=== PATIENT | female | born 1945 | race Caucasian/White ===

== ENCOUNTER 2021-12-05 21:35 | Inpatient (IN) | payer MEDICARE, OTHER ==
[2021-12-05] MEDS ORDERED: SODIUM CHLORIDE 0.9% 1,000 ML IV STA (22:01)
--- NOTE | 2021-12-05 22:10 | ED ---
Female Urogenital HPI - General Chief complaint: Vaginal Bleeding Stated complaint: Vaginal bleeding Time Seen by Provider: 12/05/21 22:01 Source: patient, EMS, RN notes reviewed, old records reviewed Mode of arrival: EMS Limitations: no limitations - History of Present Illness Initial comments: This is a 68-year-old female to the emergency department for evaluation. Patient is a few complaints today. She notes recent vaginal bleeding she's also had some abdominal pain that's been new concerns she may needed colonoscopy. She thinks Suazo maybe not be functioning perfectly. Patient has otherwise no travel history sick contacts not on blood thinners. No recent fevers. No change in medications. Patient's only medical history is significant for positive colorectal cancer MD Complaint: vaginal bleeding, pelvic pain, other (Abdominal pain) -: hour(s) (Vaginal bleeding) Location: suprapubic Radiation: non-radiating Severity: moderate Severity scale (1-10): 7 Quality: aching Consistency: constant Improves with: none Worsens with: none Patient : No Associated Symptoms: vaginal bleeding - Related Data Home Medications Medication Instructions Recorded Confirmed Famotidine 20 mg PO HS 12/05/21 12/05/21 Ibuprofen [Motrin Ib] 200 mg PO DAILY 12/05/21 12/05/21 Losartan Potassium 50 mg PO DAILY 12/05/21 12/05/21 Metoprolol Succinate (ER) [Toprol 50 mg PO HS 12/05/21 12/05/21 Xl] Naproxen Sodium [Aleve] 220 mg PO BID PRN 12/05/21 12/05/21 Simvastatin [Zocor] 20 mg PO HS 12/05/21 12/05/21 amLODIPine [Norvasc] 5 mg PO DAILY 12/05/21 12/05/21 Allergies Allergy/AdvReac Type Severity Reaction Status Date / Time No Known Allergies Allergy Verified 12/05/21 23:03 Review of Systems ROS Statement: Those systems with pertinent positive or pertinent negative responses have been documented in the HPI. ROS Other: All systems not noted in ROS Statement are negative. Past Medical History Additional Past Medical History / Comment(s): colorectal cancer History of Any Multi-Drug Resistant Organisms: None Reported Additional Past Surgical History / Comment(s): colon resection Smoking Status: Never smoker Past Alcohol Use History: None Reported Past Drug Use History: None Reported General Exam Limitations: no limitations General appearance: alert, in no apparent distress Head exam: Present: atraumatic, normocephalic, normal inspection Eye exam: Present: normal appearance, PERRL, EOMI. Absent: scleral icterus, conjunctival injection, periorbital swelling ENT exam: Present: normal exam, mucous membranes moist Neck exam: Present: normal inspection. Absent: tenderness, meningismus, lymphadenopathy Respiratory exam: Present: normal lung sounds bilaterally. Absent: respiratory distress, wheezes, rales, rhonchi, stridor Cardiovascular Exam: Present: normal rhythm, tachycardia, normal heart sounds. Absent: systolic murmur, diastolic murmur, rubs, gallop, clicks GI/Abdominal exam: Present: soft, normal bowel sounds. Absent: distended, tenderness, guarding, rebound, rigid Extremities exam: Present: normal inspection, full ROM, normal capillary refill. Absent: tenderness, pedal edema, joint swelling, calf tenderness Back exam: Present: normal inspection Neurological exam: Present: alert, oriented X3, CN II-XII intact Psychiatric exam: Present: normal affect, normal mood Skin exam: Present: warm, dry, intact, normal color. Absent: rash Course Vital Signs 12/05/21 12/05/21 21:42 22:21 Temperature 98.9 F Pulse Rate 103 H Respiratory 16 Rate Blood Pressure 194/103 164/94 O2 Sat by Pulse 96 Oximetry - Reevaluation(s) Reevaluation #1: 12/06/21 02:49 Medical record is reviewed Reevaluation #2: 12/06/21 02:49 Patient informed results and questions answered Reevaluation #3: 12/06/21 02:49 Patient does still have persistent vaginal bleeding here in the ER Reevaluation #4: 12/06/21 02:49 Patient has no active vomiting Medical Decision Making - Medical Decision Making 76 male to the ER for evaluation. Patient presents today for evaluation regards to vaginal bleeding but also complains of some abdominal pain. Maybe malfunction of her oxygen with history of colorectal cancer. Patient has no other complaints. Maybe some mild abdominal abdominal cramping as well. Patient will be seen by OB as well as surgery for both vaginal bleeding possible tumor as well as small bowel obstruction - Lab Data Result diagrams: 12/05/21 22:13 12/05/21 22:13 Lab Results 12/05/21 12/05/21 12/05/21 Range/Units 22:13 22:13 22:13 WBC 5.3 (3.8-10.6) k/uL RBC 4.57 (3.80-5.40) m/uL Hgb 14.6 (11.4-16.0) gm/dL Hct 45.2 (34.0-46.0) % MCV 99.0 (80.0-100.0) fL MCH 32.0 (25.0-35.0) pg MCHC 32.3 (31.0-37.0) g/dL RDW 13.5 (11.5-15.5) % Plt Count 374 (150-450) k/uL MPV 8.1 Neutrophils % 60 % Lymphocytes % 27 % Monocytes % 7 % Eosinophils % 2 % Basophils % 1 % Neutrophils # 3.1 (1.3-7.7) k/uL Lymphocytes # 1.4 (1.0-4.8) k/uL Monocytes # 0.4 (0-1.0) k/uL Eosinophils # 0.1 (0-0.7) k/uL Basophils # 0.0 (0-0.2) k/uL PT 10.3 (9.0-12.0) sec INR 0.9 (<1.2) APTT 21.1 L (22.0-30.0) sec Sodium 139 (137-145) mmol/L Potassium 4.2 (3.5-5.1) mmol/L Chloride 106 (98-107) mmol/L Carbon Dioxide 20 L (22-30) mmol/L Anion Gap 13 mmol/L BUN 16 (7-17) mg/dL Creatinine 0.78 (0.52-1.04) mg/dL Est GFR (CKD-EPI)AfAm 85 (>60 ml/min/1.73 sqM) Est GFR (CKD-EPI)NonAf 73 (>60 ml/min/1.73 sqM) Glucose 178 H (74-99) mg/dL Calcium 9.1 (8.4-10.2) mg/dL Total Bilirubin 0.6 (0.2-1.3) mg/dL AST 51 H (14-36) U/L ALT 23 (4-34) U/L Alkaline Phosphatase 97 (38-126) U/L Total Protein 7.4 (6.3-8.2) g/dL Albumin 4.3 (3.5-5.0) g/dL Amylase 69 (30-110) U/L Lipase 70 (23-300) U/L Urine Color Urine Appearance (Clear) Urine pH (5.0-8.0) Ur Specific [place] (1.001-1.035) Urine Protein (Negative) Urine Glucose (UA) (Negative) Urine Ketones (Negative) Urine Blood (Negative) Urine Nitrite (Negative) Urine Bilirubin (Negative) Urine Urobilinogen (<2.0) mg/dL Ur Leukocyte Esterase (Negative) Urine RBC (0-5) /hpf Urine WBC (0-5) /hpf Ur Squamous Epith Cells (0-4) /hpf Blood Type Blood Type Recheck Bld Type Recheck Status Antibody Screen Spec Expiration Date 12/05/21 12/06/21 Range/Units 22:13 00:31 WBC (3.8-10.6) k/uL RBC (3.80-5.40) m/uL Hgb (11.4-16.0) gm/dL Hct (34.0-46.0) % MCV (80.0-100.0) fL MCH (25.0-35.0) pg MCHC (31.0-37.0) g/dL RDW (11.5-15.5) % Plt Count (150-450) k/uL MPV Neutrophils % % Lymphocytes % % Monocytes % % Eosinophils % % Basophils % % Neutrophils # (1.3-7.7) k/uL Lymphocytes # (1.0-4.8) k/uL Monocytes # (0-1.0) k/uL Eosinophils # (0-0.7) k/uL Basophils # (0-0.2) k/uL PT (9.0-12.0) sec INR (<1.2) APTT (22.0-30.0) sec Sodium (137-145) mmol/L Potassium (3.5-5.1) mmol/L Chloride (98-107) mmol/L Carbon Dioxide (22-30) mmol/L Anion Gap mmol/L BUN (7-17) mg/dL Creatinine (0.52-1.04) mg/dL Est GFR (CKD-EPI)AfAm (>60 ml/min/1.73 sqM) Est GFR (CKD-EPI)NonAf (>60 ml/min/1.73 sqM) Glucose (74-99) mg/dL Calcium (8.4-10.2) mg/dL Total Bilirubin (0.2-1.3) mg/dL AST (14-36) U/L ALT (4-34) U/L Alkaline Phosphatase (38-126) U/L Total Protein (6.3-8.2) g/dL Albumin (3.5-5.0) g/dL Amylase (30-110) U/L Lipase (23-300) U/L Urine Color Light Yellow Urine Appearance Clear (Clear) Urine pH 7.0 (5.0-8.0) Ur Specific [place] 1.025 (1.001-1.035) Urine Protein Negative (Negative) Urine Glucose (UA) Negative (Negative) Urine Ketones Negative (Negative) Urine Blood Moderate H (Negative) Urine Nitrite Negative (Negative) Urine Bilirubin Negative (Negative) Urine Urobilinogen <2.0 (<2.0) mg/dL Ur Leukocyte Esterase Negative (Negative) Urine RBC 109 H (0-5) /hpf Urine WBC 3 (0-5) /hpf Ur Squamous Epith Cells <1 (0-4) /hpf Blood Type A Negative Blood Type Recheck A Neg Bld Type Recheck Status No Antibody Screen NEGATIVE Spec Expiration Date 12/08/20212312 - Radiology Data Radiology results: report reviewed (Ultrasound pelvis negative CT head and pelvis shows small bowel obstruction as well as likely uterus tumor), image reviewed Disposition Clinical Impression: Vaginal bleeding, SBO (small bowel obstruction), Ileus Disposition: ADMITTED IP TO THIS [facility] Condition: Fair Is patient prescribed a controlled substance at d/c from ED?: No
--- NOTE | 2021-12-05 22:54 | US ---
EXAMINATION TYPE: US pelvic complete DATE OF EXAM: 12/05/2021 COMPARISON: NONE CLINICAL HISTORY: bleeding. Patient presents with post menopausal vaginal bleeding. TECHNIQUE: Transabdominal (TA). Patient REFUSED TV exam Very limited exam due to overlying bowel gas and empty bladder. 1. Uterus: Obscured by overlying bowel gas 2. Endometrium: Obscured by overlying bowel gas 3. Right Ovary: Obscured by overlying bowel gas 4. Left Ovary: Obscured by overlying bowel gas 5. Bilateral Adnexa: wnl 6. Posterior cul-de-sac: wnl IMPRESSION: Exam is significantly limited by lack of bladder filling. Uterus and ovaries not identified. No evide nce of free fluid in the pelvis.
[2021-12-05 22:59] LABS: Basophils % (A) 1 %; Eosinophils # (A) 0.1 k/uL (0-0.7); Eosinophils % (A) 2 %; HCT 45.2 % (34.0-46.0); HGB 14.6 gm/dL (11.4-16.0); INR 0.9 (<1.2); Lymphocytes # (A) 1.4 k/uL (1.0-4.8); Lymphocytes % (A) 27 %; MCHC 32.3 g/dL (31.0-37.0); Mean Platelet Volume 8.1; Monocytes # (A) 0.4 k/uL (0-1.0); Monocytes % (A) 7 %; Neutrophils # (A) 3.1 k/uL (1.3-7.7); Neutrophils % (A) 60 %; Partial Thromboplastin Time 21.1 sec (22.0-30.0); Platelet Count 374 k/uL (150-450); Prothrombin Time 10.3 sec (9.0-12.0); RBC 4.57 m/uL (3.80-5.40); RDW 13.5 % (11.5-15.5); WBC 5.3 k/uL (3.8-10.6)
[2021-12-05 23:01] LABS: Albumin 4.3 g/dL (3.5-5.0); Calcium 9.1 mg/dL (8.4-10.2); Potassium 4.2 mmol/L (3.5-5.1); Total Bilirubin 0.6 mg/dL (0.2-1.3); Total Protein 7.4 g/dL (6.3-8.2)
--- NOTE | 2021-12-06 00:14 | CT ---
EXAMINATION TYPE: CT abdomen pelvis w con DATE OF EXAM: 12/05/2021 COMPARISON: None HISTORY: pain,vag bleeding CT DLP: 1288.8 mGycm Automated exposure control for dose reduction was used. CONTRAST: Performed with IV Contrast, patient injected with 100ml mL of Isovue 300. Images obtained from the diaphragm to the floor of the pelvis with IV contrast. Lung bases are clear. There is no pleural effusion. Heart size is normal. There is no pericardial eff usion. Liver spleen and stomach pancreas appear intact. The bile ducts are not dilated. Gallbladder appears normal. There is no adrenal mass. There is satisfactory contrast opacification of the kidneys. There is no hy dronephrosis. Delayed images show normal renal excretion. There is no retroperitoneal adenopathy. Jerry dder distends smoothly. There is no inguinal hernia. There is small amount of low-density free fluid in the pelvis. There is left-sided colostomy with large parastomal hernia containing multiple loops o f bowel. No bowel obstruction seen. Hernia measures 13 x 7 cm. There are some mildly dilated fluid-fi lled small bowel loops in the right lower quadrant. The terminal ileum is not dilated. Small bowel di lated up to 3.7 cm. Uterus is posterior in the pelvis and heterogeneous. The rectum is absent. There is a first-degree L4 -5 spondylolisthesis. There is no lumbar compression fracture. I see no focal bone destruction. The b luisana pelvis is intact. The hip joints are intact. IMPRESSION: Enlarged heterogeneous uterus with thickened endometrium. Tumor is possible. Abdominal surgery with resection of the rectosigmoid colon and colostomy with large parastomal hernia . There is evidence for partial mechanical small bowel obstruction likely related to incarcerated sma ll bowel loops.
[2021-12-06 01:06] LABS: Appearance,Urine Clear (Clear); Bilirubin,Urine Negative (Negative); Blood,Urine Moderate (Negative); Color,Urine Light Yellow; Glucose,Urine (UA) Negative (Negative); Ketones,Urine Negative (Negative); Leukocyte Esterase,Urine Negative (Negative); Nitrite,Urine Negative (Negative); Protein,Urine Negative (Negative); RBC,Urine 109 /hpf (0-5); Specific Gravity,Urine 1.025 (1.001-1.035); Squamous Epithelial Cell,Urine <1 /hpf (0-4); Urobilinogen,Urine <2.0 mg/dL (<2.0); WBC,Urine 3 /hpf (0-5)
[2021-12-06] MEDS ORDERED: NALOXONE 0.4 MG/ML 1 ML VIAL IV PRN (01:16)
[2021-12-06] MEDS ORDERED: ONDANSETRON 4 MG/2 ML VIAL IVP PRN (01:21)
[2021-12-06] MEDS ORDERED: MORPHINE SULFATE 4 MG/ML SYRINGE IV PRN (01:21)
[2021-12-06] MEDS ORDERED: LORazepam 2 MG/ML INJ IV PRN (01:21)
[2021-12-06] MEDS: SODIUM CHLORIDE 0.9% 1,000 ML IV SCH ×2 (02:06→20:45)
[2021-12-06] MEDS ORDERED: cloNIDine 0.2 MG/24HR PATCH TRANSDERM SCH (10:00)
--- NOTE | 2021-12-06 16:19 | P.GSCN ---
History of Present Illness Consult date: 12/06/21 History of present illness: CHIEF COMPLAINT: Vaginal bleeding HISTORY OF PRESENT ILLNESS: This is a 76-year-old female presented to the emergency room for evaluation of vaginal bleeding. Patient reports that she was sitting at her computer yesterday afternoon and felt a wet sensation. And noted to have blood that was coming from the vaginal area. She reports that her underwear was saturated and it pulled down her legs. Patient did report some left lower quadrant discomfort. Her ostomy has been functioning. She denies any nausea or vomiting. Patient reports having history of colorectal cancer with resection of the rectosigmoid colon with colostomy placement by Dr. Osuna. And then 2 months later she required repair of a parastomal hernia. She also underwent chemo and radiation treatment. Patient has never had previous history of vaginal bleeding. Surgical service was consulted for questionable mechanical small bowel traction noted on CAT scan. However patient is not presenting with a bowel obstruction symptoms. Ostomy is functioning. No nausea or vomiting. Patient seen and examined with Dr. Roberson in ER. And she's been started on a clear liquid diet. PAST MEDICAL HISTORY: Colorectal cancer PAST SURGICAL HISTORY: Estimated above MEDICATIONS: See list. ALLERGIES: See list. SOCIAL HISTORY: No illicit drug use. REVIEW OF SYSTEMS: CONSTITUTIONAL: Denies fever or chills. HEENT: Denies blurred vision, vision changes, or eye pain. Denies hemoptysis CARDIOVASCULAR: Denies chest pain or pressure. RESPIRATORY: No shortness of breath. GASTROINTESTINAL: See HPI for pertinent findings HEMATOLOGIC: Denies bleeding disorders. GENITOURINARY: Denies any blood in urine or increased urinary frequency. SKIN: Denies pruitis. Denies rash. PHYSICAL EXAM: VITAL SIGNS: Reviewed GENERAL: Well-developed in no acute distress. HEENT: No sclera icterus. Extraocular movements grossly intact. Moist buccal mucosa. Head is atraumatic, normocephalic. No nasal drainage. ABDOMEN: Soft. Nontender. Patient's ostomy is functioning small amount of stool noted. Patient does have some bulging above the stoma. NEUROLOGIC: Alert and oriented. Cranial nerves II through XII grossly intact. LABORATORY DATA: WBC 5.3 hemoglobin 14.6 platelets 374 INR 0.9 Sodium 139 potassium 4.2 creatinine 0.78 IMAGING: Computed tomography scan abdomen and pelvis and large heterogenous uterus with thickened endometrium. Tumor as possible. Abdominal surgery with resection of the rectosigmoid sigmoid colon and colostomy with large parastomal hernia. There is evidence of for partial mechanical small bowel obstruction likely related to incarcerated small bowel loops. ASSESSMENT: 1. Vaginal bleeding with heterogenous uterus with thickened endometrium and possible tumor 2. Large parastomal hernia with no clinical evidence of bowel obstruction PLAN: -Agree with [facility] consult -Start patient on clear liquid diet and monitor -Continue supportive care -No surgical intervention Thank you for this consult Physician Sales Representative Cash Registers note has been reviewed by physician. Signing provider agrees with the documented findings, assessment, and plan of care. Past Medical History Past Medical History: Cancer, GERD/Reflux, Hyperlipidemia, Hypertension, Osteoarthritis (OA), Pneumonia Additional Past Medical History / Comment(s): 2006 colorectal cancer with surgery/colostomy/chemo and radiation, diverticular disease, benign colon polyps, murmur, bronchitis History of Any Multi-Drug Resistant Organisms: None Reported Past Surgical History: Bowel Resection Additional Past Surgical History / Comment(s): AP resection/colostomy, paracolostomy hernia repair, colonoscopies, bilateral cataract removals/lens i mplants. Additional Past Anesthesia/Blood Transfusion Reaction / Comm: Slow to wake Smoking Status: Never smoker - Past Family History Father Family Medical History: Vascular Disorder Additional Family Medical History / Comment(s): Abdominal aneurysm, PVD/leg amputation. Mother Family Medical History: Diabetes Mellitus, Vascular Disorder Additional Family Medical History / Comment(s): PVD/leg amputation. Medications and Allergies Home Medications Medication Instructions Recorded Confirmed Type Famotidine 20 mg PO HS 12/05/21 12/05/21 History Ibuprofen [Motrin Ib] 200 mg PO DAILY 12/05/21 12/05/21 History Losartan Potassium 50 mg PO DAILY 12/05/21 12/05/21 History Metoprolol Succinate (ER) [Toprol 50 mg PO HS 12/05/21 12/05/21 History Xl] Naproxen Sodium [Aleve] 220 mg PO BID PRN 12/05/21 12/05/21 History Simvastatin [Zocor] 20 mg PO HS 12/05/21 12/05/21 History amLODIPine [Norvasc] 5 mg PO DAILY 12/05/21 12/05/21 History Allergies Allergy/AdvReac Type Severity Reaction Status Date / Time No Known Allergies Allergy Verified 12/05/21 23:03 Surgical - Exam Vital Signs Temp Pulse Resp BP Pulse Ox 98.9 F 103 H 16 194/103 96 12/05/21 21:42 12/05/21 21:42 12/05/21 21:42 12/05/21 21:42 12/05/21 21:42 Results - Labs 12/05/21 22:13 12/05/21 22:13 Abnormal Lab Results - Last 24 Hours (Table) 12/05/21 12/05/21 12/06/21 Range/Units 22:13 22:13 00:31 APTT 21.1 L (22.0-30.0) sec Carbon Dioxide 20 L (22-30) mmol/L Glucose 178 H (74-99) mg/dL AST 51 H (14-36) U/L Urine Blood Moderate H (Negative) Urine RBC 109 H (0-5) /hpf Diabetes panel 12/05/21 Range/Units 22:13 Sodium 139 (137-145) mmol/L Potassium 4.2 (3.5-5.1) mmol/L Chloride 106 (98-107) mmol/L Carbon Dioxide 20 L (22-30) mmol/L BUN 16 (7-17) mg/dL Creatinine 0.78 (0.52-1.04) mg/dL Glucose 178 H (74-99) mg/dL Calcium 9.1 (8.4-10.2) mg/dL AST 51 H (14-36) U/L ALT 23 (4-34) U/L Alkaline Phosphatase 97 (38-126) U/L Total Protein 7.4 (6.3-8.2) g/dL Albumin 4.3 (3.5-5.0) g/dL Calcium panel 12/05/21 Range/Units 22:13 Calcium 9.1 (8.4-10.2) mg/dL Albumin 4.3 (3.5-5.0) g/dL Pituitary panel 12/05/21 Range/Units 22:13 Sodium 139 (137-145) mmol/L Potassium 4.2 (3.5-5.1) mmol/L Chloride 106 (98-107) mmol/L Carbon Dioxide 20 L (22-30) mmol/L BUN 16 (7-17) mg/dL Creatinine 0.78 (0.52-1.04) mg/dL Glucose 178 H (74-99) mg/dL Calcium 9.1 (8.4-10.2) mg/dL Adrenal panel 12/05/21 Range/Units 22:13 Sodium 139 (137-145) mmol/L Potassium 4.2 (3.5-5.1) mmol/L Chloride 106 (98-107) mmol/L Carbon Dioxide 20 L (22-30) mmol/L BUN 16 (7-17) mg/dL Creatinine 0.78 (0.52-1.04) mg/dL Glucose 178 H (74-99) mg/dL Calcium 9.1 (8.4-10.2) mg/dL Total Bilirubin 0.6 (0.2-1.3) mg/dL AST 51 H (14-36) U/L ALT 23 (4-34) U/L Alkaline Phosphatase 97 (38-126) U/L Total Protein 7.4 (6.3-8.2) g/dL Albumin 4.3 (3.5-5.0) g/dL
--- NOTE | 2021-12-06 17:35 | P.OBCN ---
History of Present Illness Consult date: 12/06/21 Requesting physician: Osman Goodman Reason for consult: other (Postmenopausal bleeding) Chief complaint: Vaginal bleeding History of present illness: This is a 76-year-old postmenopausal woman who reports sudden onset of vaginal bleeding yesterday evening. She reports she is feeling well and dissected up from a seated position. She then felt a gush of fluid and noted dark red and brown vaginal bleeding that saturated through her clothes. She continued to have bleeding for the next 1 hour therefore called EMS and was transported to the hospital. Currently she states her bleeding has decreased significantly however she does have a small amount on her pad every time she is up to the ba throom. Admission hemoglobin was 14.6 and white blood cells 5.3. Past medical history is significant for rectal cancer 14 years ago and she is status post rectal resection, chemotherapy and pelvic radiation. She currently has a stoma. Currently She denies abdominal or pelvic pain. She has had normal output without blood from her stoma. She denies chest pain, shortness of breath, fever, chills, lightheadedness or syncopal episodes. Her appetite is normal and she is otherwise ambulating and voiding without any difficulty. Computed tomography scan of abdomen and pelvis significant for left sided colostomy with a large parastomal hernia containing multiple loops of bowel. Hernia is 13 x 7 cm. possible small mechanical bowel obstruction. The uterus is reported as posterior and heterogeneous. There are no measurements recorded however review of the images shows uterus to be within the posterior pelvis below the level of the sacral promontory. There are no adnexal masses or pelvic lymphadenopathy noted. Transabdominal pelvic ultrasound was performed however severely limited the uterus is not visualized. The patient at that time declined a transvaginal ultrasound. Review of Systems Constitutional: Denies chills, Denies fatigue, Denies fever Breasts: absent: masses Cardiovascular: Denies chest pain, Denies irregular heart beat, Denies lightheadedness, Denies palpitations, Denies rapid heart beat, Denies shortness of breath, Denies syncope Respiratory: Denies congestion, Denies cough Gastrointestinal: Denies abdominal pain, Denies BRBPR, Denies heartburn, Denies nausea, Denies vomiting Genitourinary: Reports abnormal vaginal bleeding, Denies dysuria, Denies hematuria, Denies pelvic pain Menstruation: Reports postmenopausal Integumentary: Denies rash Neurological: Denies headaches, Denies syncope Psychiatric: Denies depression Hematologic/Lymphatic: Denies easy bleeding, Denies easy bruising Past Medical History Past Medical History: Cancer, GERD/Reflux, Hyperlipidemia, Hypertension, Osteoarthritis (OA), Pneumonia Additional Past Medical History / Comment(s): 2006 colorectal cancer with surgery/colostomy/chemo and radiation, diverticular disease, benign colon polyps, murmur, bronchitis History of Any Multi-Drug Resistant Organisms: None Reported Past Surgical History: Bowel Resection Additional Past Surgical History / Comment(s): AP resection/colostomy, paracolostomy hernia repair, colonoscopies, bilateral cataract removals/lens implants. Additional Past Anesthesia/Blood Transfusion Reaction / Comm: Slow to wake Smoking Status: Never smoker - Past Family History Father Family Medical History: Vascular Disorder Additional Family Medical History / Comment(s): Abdominal aneurysm, PVD/leg am putation. Mother Family Medical History: Diabetes Mellitus, Vascular Disorder Additional Family Medical History / Comment(s): PVD/leg amputation. Medications and Allergies Home Medications Medication Instructions Recorded Confirmed Type Famotidine 20 mg PO HS 12/05/21 12/05/21 History Ibuprofen [Motrin Ib] 200 mg PO DAILY 12/05/21 12/05/21 History Losartan Potassium 50 mg PO DAILY 12/05/21 12/05/21 History Metoprolol Succinate (ER) [Toprol 50 mg PO HS 12/05/21 12/05/21 History Xl] Naproxen Sodium [Aleve] 220 mg PO BID PRN 12/05/21 12/05/21 History Simvastatin [Zocor] 20 mg PO HS 12/05/21 12/05/21 History amLODIPine [Norvasc] 5 mg PO DAILY 12/05/21 12/05/21 History Allergies Allergy/AdvReac Type Severity Reaction Status Date / Time No Known Allergies Allergy Verified 12/05/21 23:03 Exam Vital Signs Temp Pulse Pulse Resp BP BP Pulse Ox 12/06/21 16:22 98.3 F 61 18 145/73 95 12/06/21 14:00 159/66 96 12/06/21 08:00 98.5 F 84 18 154/71 96 12/06/21 04:23 98.2 F 66 16 128/57 96 12/05/21 22:21 164/94 12/05/21 21:42 98.9 F 103 H 16 194/103 96 Intake and Output 12/06/21 12/06/21 12/06/21 06:59 14:59 22:59 Intake Total 1040 Balance 1040 Intake: Intake, IV Titration 1040 Amount Sodium Chloride 0.9% 1, 1040 000 ml @ 130 mls/hr IV . Q7H42M [facility] Rx#:[id number] Other: Weight 68.039 kg This is a pleasant, comfortable and well-appearing female, appears younger than stated age. HEENT exam is unremarkable for any palpable lymphadenopathy or thyromegaly. Her breathing is on labored and her heart is a regular rate and rhythm. The breasts are symmetric bilaterally and free of any skin changes or nipple discharge. There are no palpable breast masses noted. The abdomen is obese with a large overhanging pannus and stoma in the midline. There is brown stool noted in the stoma bag. There is no rebound, no guarding and no flank pain noted. No suprapubic pain or palpable masses noted. The extremities are free of any swelling, edema or redness. On bedside pelvic examination the external genitalia appears atrophic and otherwise normal. She has some thickening of the skin and scarring consistent with history of rectal resection however no ulcerations or abnormal tissue was appreciated. Exam is limited at the bedside however bimanual examination is performed with the patient's consent. There is a small amount of dark blood in the vaginal vault. The vagina tracts posteriorly and is constricted at the apex consistent with history of pelvic radiation. I do not palpate a cervix. The uterus and adnexa are not palpable secondary to the patient's body habitus however no large mass is palpable. The patient has no pain on examination. I do not believe that there is a fistula. Results Result Diagrams: 12/05/21 22:13 12/05/21 22:13 Abnormal Lab Results - Last 24 Hours (Table) 12/05/21 12/05/21 12/06/21 Range/Units 22:13 22:13 00:31 APTT 21.1 L (22.0-30.0) sec Carbon Dioxide 20 L (22-30) mmol/L Glucose 178 H (74-99) mg/dL AST 51 H (14-36) U/L Urine Blood Moderate H (Negative) Urine RBC 109 H (0-5) /hpf CT scan - abdomen: report reviewed, image reviewed CT scan - pelvis: report reviewed, image reviewed US - abdomen: report reviewed Assessment and Plan (1) History of rectal cancer Current Visit: Yes Status: Acute Code(s): Z85.048 - PRSNL HX OF MALIG NEOPLM OF RECTUM, RECTOSIG JUNCT, AND ANUS SNOMED Code(s): 278229212 (2) Colostomy hernia Current Visit: Yes Status: Acute Code(s): K94.09 - OTHER COMPLICATIONS OF COLOSTOMY SNOMED Code(s): 793864941 (3) Vaginal bleeding Current Visit: Yes Status: Acute Code(s): N93.9 - ABNORMAL UTERINE AND VAGINAL BLEEDING, UNSPECIFIED SNOMED Code(s): 919431264 Plan: This is a 76-year-old woman with a 1 day history of vaginal bleeding. Remote hi story of rectal cancer status post rectal resection, chemotherapy and pelvic radiation. The patient agrees to have a transvaginal ultrasound to better determine pelvic anatomy. Her pelvic exam is limited and she will require formal gynecologic examination with tissue sampling. I will review her imaging tomorrow and discuss with her the best route for doing this, depending on her anatomy she may be amenable to simple endometrial biopsy in the office versus examination under anesthetic with D&C. At this point the patient is asymptomatic and is hemodynamically stable.
--- NOTE | 2021-12-06 20:37 | US ---
EXAMINATION TYPE: US transvaginal DATE OF EXAM: 12/06/2021 COMPARISON: US Pelvis, CT 12/05/21 CLINICAL HISTORY: PMB bleeding, hx rectal cancer. Post menopausal bleeding; hx rectal cancer 14 years ago. TECHNIQUE: Transvaginal (TV). Patient had transabdominal pelvic ultrasound yesterday in ER but refused TV exam. Today, patient co nsented to TV exam EXAM MEASUREMENTS: Uterus: 8.3 x 5.5 x 6.2 cm Endometrial Stripe: 2.1 cm 1. Uterus: Anteverted Heterogenous appearance 2. Endometrium: Thickened endometrium that appears heterogenous 3. Right Ovary: Obscured by overlying bowel gas 4. Left Ovary: Obscured by overlying bowel gas 5. Bilateral Adnexa: Appears wnl 6. Posterior cul-de-sac: wnl IMPRESSION: Endometrium measures 2 cm. Tumor should be considered in this postmenopausal patient. No free fluid. Ovaries not seen.
[2021-12-06] MEDS: FAMOTIDINE 20 MG TAB PO SCH (20:43)
--- NOTE | 2021-12-06 21:21 | P.HPIM ---
History of Present Illness H&P Date: 12/06/21 Chief Complaint: Vaginal brown discharge This is a very pleasant 76-year-old patient of Dr. Lori Krueger, was chronic stable medical conditions include GERD, hyperlipidemia, hypertension, osteoarthritis, in 2006 had colorectal cancer with surgery colostomy chemoradiation, diverticulosis. Patient yesterday had an episode where she suddenly felt the something gushing out from the vagina admitted to the bathroom found a large amount of brown liquid then gushed out. She did put a pad that also got some. Denied any dizziness lightheadedness no fever no chills. No lower abdominal pain. No local symptoms. Patient ostomy normally she empties it about 2-4 times a day. Review of systems: GEN.: Tired EYES: None HEENT: None NECK: None RESPIRATORY: None CARDIOVASCULAR: None GASTROINTESTINAL: None GENITOURINARY: As above MUSCULOSKELETAL: Pain many joints LYMPHATICS: None HEMATOLOGICAL: None PSYCHIATRY: None NEUROLOGICAL: None Past medical history to include: GERD, hyperlipidemia, hypertension, osteoarthritis, colorectal cancer 2006 with surgery chemo radiation and colostomy. Diverticular disease. Benign colon polyps Social history: Lives with her . Nonsmoker. Alcohol rarely Family history: Vascular disorder, abdominal aneurysm Physical examination: VITAL SIGNS: 98.2, 66, 16, 128/57, 96% room air GENERAL: BMI 30.3, But awake, slightly tired. EYES: Pupils equal. Conjunctiva normal. HEENT: External appearance of nose and ears normal, oral cavity grossly normal. NECK: JVD not raised; masses not palpable. HEART: First and second heart sounds are normal; no edema. LUNGS: Respiratory rate normal; clear to auscultation. ABDOMEN: Soft, nontender, liver spleen not palpable, no masses palpable, colostomy bag. PSYCH: Alert and oriented x3; mood and affect normal. MUSCULOSKELETAL:No Clubbing/cyanosis;muscles-grossly intact. Evidence of OA NEUROLOGICAL: Cranial nerves grossly intact; no facial asymmetry, power and sensation grossly intact. LYMPHATICS: No lymph nodes palpable in the axilla and neck INVESTIGATIONS, reviewed in the clinical context: White count 5.3 hemoglobin 14.6 platelets 374 sodium 139 potassium 4.2 creati nine 0.78 UA positive for blood, RBC 109 Pelvic ultrasound: Limited exam due to lack of bladder filling CT abdomen and pelvis with contrast: The second colostomy with large parastomal hernia containing multiple loops of bowel obstruction. L4-L5 spondylolisthesis. Large heterogenesis uterus with thickened endometrium Assessment and plan: -Patient presents with large amount of brownish discolored fluid from the vagina. 70 pain fever no chills. CT did show enlarged uterus with thickened endometrium. Localized malignancy to be considered. MECHANICAL OPERATOR consulted. Patient will need a transvaginal ultrasound. Possibly a malignancy was discussed with the patient. -Large parastomal hernia with bowel loops and there. Nonobstructive. Patient has no symptoms. Surgery was consulted -Colostomy, from prior history of colorectal cancer. Has been functioning normally -Hyperlipidemia Zocor 4020 mg daily at bedtime -Essential hypertension Toprol-XL 50 mg daily at bedtime, Norvasc 5 mg a day, losartan 50 mg a day -Primary osteoarthritis multiple joints Aleve 220 mg by mouth twice a day when necessary -Obesity BMI 30.3 Weight loss measures Care was discussed with the patient. Consultation to surgery MECHANICAL OPERATOR was done. Home medications resumed. Patient will need a transvaginal ultrasound. Past Medical History Additional Past Medical History / Comment(s): colorectal cancer History of Any Multi-Drug Resistant Organisms: None Reported Additional Past Surgical History / Comment(s): colon resection Smoking Status: Never smoker Past Alcohol Use History: None Reported Past Drug Use History: None Reported - Past Family History Father Family Medical History: Vascular Disorder Additional Family Medical History / Comment(s): Abdominal aneurysm, PVD/leg amputation. Mother Family Medical History: Diabetes Mellitus, Vascular Disorder Additional Family Medical History / Comment(s): PVD/leg amputation. Medications and Allergies Home Medications Medication Instructions Recorded Confirmed Type Famotidine 20 mg PO HS 12/05/21 12/05/21 History Ibuprofen [Motrin Ib] 200 mg PO DAILY 12/05/21 12/05/21 History Losartan Potassium 50 mg PO DAILY 12/05/21 12/05/21 History Metoprolol Succinate (ER) [Toprol 50 mg PO HS 12/05/21 12/05/21 History Xl] Naproxen Sodium [Aleve] 220 mg PO BID PRN 12/05/21 12/05/21 History Simvastatin [Zocor] 20 mg PO HS 12/05/21 12/05/21 History amLODIPine [Norvasc] 5 mg PO DAILY 12/05/21 12/05/21 History Allergies Allergy/AdvReac Type Severity Reaction Status Date / Time No Known Allergies Allergy Verified 12/05/21 23:03 Physical Exam Vitals: Vital Signs Temp Pulse Pulse Resp BP BP Pulse Ox 12/06/21 08:00 98.5 F 84 18 154/71 96 12/06/21 04:23 98.2 F 66 16 128/57 96 12/05/21 22:21 164/94 12/05/21 21:42 98.9 F 103 H 16 194/103 96 Intake and Output 12/05/21 12/06/21 12/06/21 22:59 06:59 14:59 Intake Total 1040 Balance 1040 Intake: Intake, IV Titration 1040 Amount Sodium Chloride 0.9% 1, 1040 000 ml @ 130 mls/hr IV . Q7H42M [facility] Rx#:[id number] Other: Weight 68.039 kg Results CBC & Chem 7: 12/05/21 22:13 12/05/21 22:13 Labs: Abnormal Lab Results - Last 24 Hours (Table) 12/05/21 12/05/21 12/06/21 Range/Units 22:13 22:13 00:31 APTT 21.1 L (22.0-30.0) sec Carbon Dioxide 20 L (22-30) mmol/L Glucose 178 H (74-99) mg/dL AST 51 H (14-36) U/L Urine Blood Moderate H (Negative) Urine RBC 109 H (0-5) /hpf
[2021-12-06] MEDS: LACTATED RINGERS 1,000 ML IV SCH (22:43)
[2021-12-06] MEDS: ENOXAPARIN 40 MG/0.4 ML SYRINGE SQ SCH (22:43)
--- NOTE | 2021-12-07 08:39 | P.PN ---
Subjective Progress Note Date: 12/07/21 Principal diagnosis: Vaginal bleeding, possible small bowel obstruction Small amounts of vaginal bleeding throughout the night. Otherwise she feels well. Review of transvaginal ultrasound shows uterus measuring 8.3 x 5.5 x 6.2 cm. Thickened endometrial stripe at 2.1 cm. Findings reviewed with the patient and her daughter in detail. Findings on the concerning for possible endometrial cancer. I have recommended on D&C during her admission for the pathology specimen. The procedure was reviewed in detail including anticipated recovery. Risks include increased bleeding, transfusion, infection, uterine perforation with damage to internal structures. I will discuss case with the surgical team and if she is requiring any intervention for her stoma or bowel obstruction requiring operative intervention we can coordinate care. All questions from the patient and family were answered. Objective - Vital Signs Vital signs: Vital Signs Temp 97.7 F 12/07/21 05:00 Pulse 68 12/07/21 05:00 Resp 18 12/07/21 05:00 BP 133/70 12/07/21 05:00 Pulse Ox 96 12/07/21 05:00 Intake & Output 12/06/21 12/07/21 12/07/21 18:59 06:59 18:59 Intake Total 260 400 Balance 260 400 Weight 68.039 kg Intake: Intake, IV Titration 260 400 Amount Lactated Ringers 1,000 ml 400 @ 50 mls/hr IV .Q20H [facility] Rx#:[id number] Sodium Chloride 0.9% 1, 260 000 ml @ 130 mls/hr IV . Q7H42M [facility] Rx#:[id number] Other: # Voids 3 - Constitutional General appearance: Present: average body habitus - Gastrointestinal Gastrointestinal Comment(s): Abdomen obese, soft and nontender. Minimal brown output from stoma bag, no bleeding. - Genitourinary Genitourinary Comment(s): Deferred - Labs CBC & Chem 7: 12/05/21 22:13 12/05/21 22:13 Assessment and Plan (1) History of rectal cancer Current Visit: Yes Status: Acute Code(s): Z85.048 - PRSNL HX OF MALIG NEOPLM OF RECTUM, RECTOSIG JUNCT, AND ANUS SNOMED Code(s): 290434869 (2) Colostomy hernia Current Visit: Yes Status: Acute Code(s): K94.09 - OTHER COMPLICATIONS OF COLOSTOMY SNOMED Code(s): 863594573 (3) Vaginal bleeding Current Visit: Yes Status: Acute Code(s): N93.9 - ABNORMAL UTERINE AND VAGINAL BLEEDING, UNSPECIFIED SNOMED Code(s): 764149950 Plan: Plan for exam under anesthetic with dilation and curettage. Patient is nothing by mouth.
[2021-12-07] MEDS: amLODIPine 5 MG TAB PO SCH (09:16)
[2021-12-07] MEDS: LOSARTAN 50 MG TAB PO SCH (09:16)
[2021-12-07 09:44] LABS: Basophils # (A) 0.02 X 10*3/uL (0.00-0.10); Basophils % (A) 0.4 %; Eosinophils % (A) 3.7 %; HCT 38.3 % (37.2-46.3); HGB 12.2 g/dL (12.0-15.0); Immature Grans, Automated 0.2 %; Lymphocytes # (A) 1.42 X 10*3/uL (0.90-5.00); Lymphocytes % (A) 26.1 %; MCH 30.5 pg (27.0-32.0); MCHC 31.9 g/dL (32.0-37.0); MCV 95.8 fL (80.0-97.0); Monocytes # (A) 0.53 X 10*3/uL (0.20-1.00); Monocytes % (A) 9.7 %; NRBC Per 100 WBC 0 /100 WBCS (0.0-0.0); Neutrophils # (A) 3.26 X 10*3/uL (1.80-7.70); Neutrophils % (A) 59.9 %; Platelet Count 309 X 10*3/uL (140-440); WBC 5.44 X 10*3/uL (4.50-10.00)
[2021-12-07] MEDS: ENOXAPARIN 40 MG/0.4 ML SYRINGE SQ SCH (10:15)
--- NOTE | 2021-12-07 14:15 | P.PN ---
Subjective Progress Note Date: 12/07/21 CHIEF COMPLAINT: Vaginal bleeding HISTORY OF PRESENT ILLNESS: Patient is still reporting vaginal bleeding. She is scheduled for D&C with STEWARD/STEWARDESS SECOND service. She denies any abdominal pain. She's had decreased output through her ostomy. She did have a small amount of stool and air in the colostomy bag last night. Afebrile. WBC 5.4 hemoglobin 14.6 down to 12.2 PHYSICAL EXAM: VITAL SIGNS: Reviewed. GENERAL: Well-developed in no acute distress. HEENT: No sclera icterus. Extraocular movements grossly intact. Moist buccal mucosa. Head is atraumatic, normocephalic. ABDOMEN: Soft. Nontender. Patient has distention around the stoma. Evidence of a parastomal hernia. No output through her ostomy. Stoma beefy red. NEUROLOGIC: Alert and oriented. Cranial nerves II through XII grossly intact. ASSESSMENT: 1. Large parastomal hernia 2. Vaginal bleeding with heterogenous uterus with thickened endometrium and possible tumor PLAN: -Patient scheduled for D&C with STEWARD/STEWARDESS SECOND service -Continue supportive care -Continue to monitor ostomy output -No surgical intervention planned Physician Dependency Program Director note has been reviewed by physician. Signing provider agrees with the documented findings, assessment, and plan of care. Objective - Vital Signs Vital signs: Vital Signs Temp 98.4 F 12/07/21 12:02 Pulse 68 12/07/21 12:02 Resp 18 12/07/21 12:02 BP 145/68 12/07/21 12:02 Pulse Ox 96 12/07/21 12:02 Intake & Output 12/06/21 12/07/21 12/07/21 18:59 06:59 18:59 Intake Total 260 400 Balance 260 400 Weight 68.039 kg Intake: Intake, IV Titration 260 400 Amount Lactated Ringers 1,000 ml 400 @ 50 mls/hr IV .Q20H [facility] Rx#:[id number] Sodium Chloride 0.9% 1, 260 000 ml @ 130 mls/hr IV . Q7H42M [facility] Rx#:[id number] Other: # Voids 3 - Labs CBC & Chem 7: 12/07/21 05:57 12/05/21 22:13 Labs: Abnormal Lab Results - Last 24 Hours (Table) 12/07/21 Range/Units 05:57 RBC 4.00 L (4.10-5.20) X 10*6/uL MCHC 31.9 L (32.0-37.0) g/dL
[2021-12-07] MEDS ORDERED: IV FLUID CONTINUATION 175 ML IV ONE (15:25)
--- NOTE | 2021-12-07 15:31 | P.PN ---
Progress Note - Text Progress Note Date: 12/07/21 Chief Complaint: Vaginal brown discharge This is a very pleasant 76-year-old patient of Dr. Lori Krueger, was chronic stable medical conditions include GERD, hyperlipidemia, hypertension, osteoarthritis, in 2006 had colorectal cancer with surgery colostomy chemoradiation, diverticulosis. Patient yesterday had an episode where she suddenly felt the something gushing out from the vagina admitted to the bathroom found a large amount of brown liquid then gushed out. She did put a pad that also got some. Denied any dizziness lightheadedness no fever no chills. No lower abdominal pain. No local symptoms. Patient ostomy normally she empties it about 2-4 times a day. December 07: Saw the patient earlier today. Per [facility] DNC later today and biopsy will be sent off for suspected underlying malignancy. Discussed with patient. No indication for surgical intervention for abdominal hernia. Being followed by surgery. Active Medications Amlodipine Besylate (Amlodipine 5 Mg Tab) 5 mg PO DAILY [facility] Last Admin: 12/07/21 09:16 Dose: 5 mg Documented by: Clonidine HCl (Clonidine 0.2 Mg/24hr Patch) 1 patch TRANSDERM Q7D [facility] Last Admin: 12/06/21 11:29 Dose: 1 patch Documented by: Enoxaparin Sodium (Enoxaparin 40 Mg/0.4 Ml Syringe) 40 mg SQ DAILY [facility] Last Admin: 12/07/21 10:15 Dose: Not Given Documented by: Famotidine (Famotidine 20 Mg Tab) 20 mg PO HS [facility] Last Admin: 12/06/21 20:43 Dose: 20 mg Documented by: Lactated Ringer's (Lactated Ringers) 1,000 mls @ 50 mls/hr IV .Q20H [facility] Last Admin: 12/06/21 22:43 Dose: 50 mls/hr Documented by: Lorazepam (Lorazepam 2 Mg/Ml Inj) 0.5 mg IV Q6HR PRN PRN Reason: Anxiety Losartan Potassium (Losartan 50 Mg Tab) 50 mg PO DAILY [facility] Last Admin: 12/07/21 09:16 Dose: 50 mg Documented by: Morphine Sulfate (Morphine Sulfate 4 Mg/Ml Syringe) 4 mg IV Q4HR PRN PRN Reason: Severe Pain Naloxone HCl (Naloxone 0.4 Mg/Ml 1 Ml Vial) 0.2 mg IV Q2M PRN PRN Reason: Opioid Reversal Ondansetron HCl (Ondansetron 4 Mg/2 Ml Vial) 4 mg IVP Q8HR PRN PRN Reason: Nausea And Vomiting Past medical history to include: GERD, hyperlipidemia, hypertension, osteoarthritis, colorectal cancer 2007 with surgery chemo radiation and colostomy. Diverticular disease. Benign colon polyps Social history: Lives with her . Nonsmoker. Alcohol rarely Family history: Vascular disorder, abdominal aneurysm Physical examination: VITAL SIGNS: 98.4, 68, 18, 145/68, 96% room air GENERAL: In a tanning bed, awake, comfortable EYES: Pupils equal. Conjunctiva normal. HEENT: External appearance of nose and ears normal, oral cavity grossly normal. NECK: JVD not raised; masses not palpable. HEART: First and second heart sounds are normal; no edema. LUNGS: Respiratory rate normal; clear to auscultation. ABDOMEN: Soft, nontender, liver spleen not palpable, no masses palpable, colo stomy bag. PSYCH: Alert and oriented x3; mood and affect normal. MUSCULOSKELETAL:No Clubbing/cyanosis;muscles-grossly intact. Evidence of OA INVESTIGATIONS, reviewed in the clinical context: December 07: White count 5.4 hemoglobin 12.2 White count 5.3 hemoglobin 14.6 platelets 374 sodium 139 potassium 4.2 creatinine 0.78 UA positive for blood, RBC 109 Pelvic ultrasound: Limited exam due to lack of bladder filling CT abdomen and pelvis with contrast: The second colostomy with large parastomal hernia containing multiple loops of bowel obstruction. L4-L5 spondylolisthesis. Large heterogenesis uterus with thickened endometrium Assessment and plan: - presents with large amount of brownish discolored fluid from the vagina. 70 pain fever no chills. CT did show enlarged uterus with thickened endometrium. Localized malignancy suspected. 4 DNC later today -Large parastomal hernia with bowel loops and there. Nonobstructive. Follow clinically -Colostomy, from prior history of colorectal cancer. Has been functioning normally -Hyperlipidemia Zocor 4020 mg daily at bedtime -Essential hypertension Toprol-XL 50 mg daily at bedtime, Norvasc 5 mg a day, losartan 50 mg a day -Primary osteoarthritis multiple joints Aleve 220 mg by mouth twice a day when necessary -Obesity BMI 30.3 Weight loss measures Patient to go down 4 DNC later today. Tissue be sent from histology. Discussed with patient.
[2021-12-07] MEDS ORDERED: METOPROLOL SUCCINATE (ER) 50 MG TAB.ER.24H PO STA (15:35)
[2021-12-07] MEDS ORDERED: DEXAMETHASONE SOD PHOSPHATE 10 MG/ML 1 ML VIAL IV ONE (15:43)
[2021-12-07] MEDS ORDERED: fentaNYL (PF) 50 MCG/ML 2 ML AMP ONE (16:16)
[2021-12-07] MEDS ORDERED: PROPOFOL 10 MG/ML 20 ML VIAL IV ONE (16:16)
[2021-12-07] MEDS ORDERED: MIDAZOLAM 2 MG/2 ML VIAL ONE (16:16)
[2021-12-07] MEDS ORDERED: LACTATED RINGERS 1,000 ML IV ONE (16:39)
--- NOTE | 2021-12-07 17:40 | P.OP ---
Date of Procedure: 12/07/21 Preoperative Diagnosis: Postmenopausal bleeding Thickened endometrium History of rectal resection Postoperative Diagnosis: Postmenopausal bleeding Thickened endometrium History of rectal resection Procedure(s) Performed: Exam under anesthetic with vaginoscopy Anesthesia: MAC Surgeon: Kiara Correia Estimated Blood Loss (ml): 0 IV fluids (ml): 300 Urine output (ml): 400 Pathology: none sent Condition: stable Disposition: PACU Indications for Procedure: 76-year-old woman with postmenopausal bleeding and findings of thickened endometrium on pelvic ultrasound. History of rectal cancer status post rectal resection and pelvic radiation Operative Findings: The vagina is severely atrophic. The vaginal canal tracts posteriorly and narrows. Vaginal length is 12-13 cm. The cervix is not able to be palpated due to length of vaginal canal. The hysteroscope camera was utilized to carefully follow the vagina to the apex. There is a small amount of bright red bleeding however no obvious cervix is visualized. The vaginal tissue appears smooth and healthy and atrophic. There is no obvious source of bleeding. Description of Procedure: After the patient was met preoperatively and all questions were answered, she was taken to the operating room where anesthetic was administered without incident. She was in positioned, prepped and draped in the dorsal high lithotomy position. The bladder was drained for approximately 400 mL of clear urine. The external genitalia was inspected and noted to be normal in appearance with evidence of rectal resection and repair. On bimanual examination the vagina is very elongated and tracks posterior to the level of the sacral bowl. I do not palpate cervix and the body habitus limits bimanual examination abdominally. The uterine sound was gently inserted into the vagina to the depth of the vaginal canal which is 12-13 cm. This is narrow. Additional instrumentation was called to the room to get narrow enough retractors to attempt to adequately visualize. This proved unsuccessful. Therefore a hysteroscope was brought to the room. The hysteroscope was then introduced down the length of the vaginal canal very carefully and under direct visualization the apex of the vagina I believe was reached. There was no active bleeding but there was also no evidence of normal cervical tissue. This is consistent with possible a coordination of the apex of the vagina status post radiation therapy. Thorough inspection of the complete length the anterior and posterior lip the vagina was undertaken and no tissue abnormalities were appreciated and again no evidence of any cervical os is noted. At this point the procedure was terminated without the pathology specimen. The patient was awoken from anesthetic without incident and transported to the recovery area in good condition all counts were correct. It is my postoperative impression that the there is likely significant post radiation changes to the apex of the vagina that would preclude any attempts at getting an endometrial specimen by vaginal route. Also however there was no evidence of active bleeding and no evidence of other tumor in the pelvis.
[2021-12-07] MEDS: FAMOTIDINE 20 MG TAB PO SCH (20:23)
[2021-12-07] MEDS: LACTATED RINGERS 1,000 ML IV SCH (20:26)
[2021-12-08 04:32] VITALS: RESP 16
[2021-12-08] MEDS: ENOXAPARIN 40 MG/0.4 ML SYRINGE SQ SCH (09:01)
[2021-12-08] MEDS: LOSARTAN 50 MG TAB PO SCH (09:01)
[2021-12-08] MEDS: amLODIPine 5 MG TAB PO SCH (09:01)
[2021-12-08 11:59] VITALS: BP 146/63; PULSE 62; TEMP 98.2
--- NOTE | 2021-12-08 14:00 | P.PN ---
Subjective Progress Note Date: 12/08/21 CHIEF COMPLAINT: Vaginal bleeding HISTORY OF PRESENT ILLNESS: Patient denies any abdominal pain. Her ostomy is functioning. She is tolerating regular diet. Denies any nausea vomiting. She said no further vaginal bleeding. She's been cleared by [employer] service for discharge. Afebrile. PHYSICAL EXAM: VITAL SIGNS: Reviewed. GENERAL: Well-developed in no acute distress. HEENT: No sclera icterus. Extraocular movements grossly intact. Moist buccal mucosa. Head is atraumatic, normocephalic. ABDOMEN: Soft. Nontender. Patient has distention around the stoma. Evidence of a parastomal hernia. Stool present in the colostomy bag NEUROLOGIC: Alert and oriented. Cranial nerves II through XII grossly intact. ASSESSMENT: 1. Large parastomal hernia with possible partial small bowel obstruction noted on CAT scan that resolved on its own 2. Vaginal bleeding with heterogenous uterus with thickened endometrium and possible tumor. Evaluated by [employer] INST[employer] service PLAN: -Patient can be discharged from surgical standpoint -Patient follow-up with Dr. bland in 1 week to discuss further surgical intervention for the parastomal hernia Physician Customer Relations Advisor note has been reviewed by physician. Signing provider agrees with the documented findings, assessment, and plan of care. Objective - Vital Signs Vital signs: Vital Signs Temp 98.2 F 12/08/21 11:26 Pulse 62 12/08/21 11:26 Resp 16 12/08/21 11:26 BP 146/63 12/08/21 11:26 Pulse Ox 97 12/08/21 11:26 Intake & Output 12/07/21 12/08/21 12/08/21 18:59 06:59 18:59 Intake Total 575 Output Total 400 Balance 175 Intake: IV 575 Output: Urine 400 Other: # Voids 1 4 - Labs CBC & Chem 7: 12/07/21 05:57 12/05/21 22:13
--- NOTE | 2021-12-08 16:50 | P.DS ---
Providers Date of admission: 12/06/21 01:58 Expected date of discharge: 12/08/21 Attending physician: Osman Goodman Consults: 12/06/21 01:24 Consult Physician Routine Consulting Provider: Kiara Correia Consult Reason/Comments: uterineTumor Do you want consulting provider notified?: Yes 12/06/21 01:54 Consult Physician Routine Consulting Provider: Naseem aCnales Consult Reason/Comments: sbo Do you want consulting provider notified?: Yes Primary care physician: Lori Krueger [facility] Course: Chief Complaint: Vaginal brown discharge This is a very pleasant 76-year-old patient of Dr. Lori Krueger, was chronic stable medical conditions include GERD, hyperlipidemia, hypertension, osteoarthritis, in 2006 had colorectal cancer with surgery colostomy chemoradiation, diverticulosis. Patient yesterday had an episode where she suddenly felt the something gushing out from the vagina admitted to the bathroom found a large amount of brown li quid then gushed out. She did put a pad that also got some. Denied any dizziness lightheadedness no fever no chills. No lower abdominal pain. No local symptoms. Patient ostomy normally she empties it about 2-4 times a day. December 07: Saw the patient earlier today. Per [employer] OPERATOR HELPER D[facility] later today and biopsy will be sent off for suspected underlying malignancy. Discussed with patient. No indication for surgical intervention for abdominal hernia. Being followed by surgery. December 08: Yesterday Dr. Correia took the patient down but patient's cervical Os was closed off. Patient will need outpatient intervention with hysterectomy. Cleared by SHEAR GRINDER OPERATOR HELPER and surgery. Discussed with patient. Questions answered. Discussion and discharge planning more than 35 minutes Past medical history to include: GERD, hyperlipidemia, hypertension, osteoarthritis, colorectal cancer 2007 with surgery chemo radiation and colostomy. Diverticular disease. Benign colon polyps Social history: Lives with her . Nonsmoker. Alcohol rarely Family history: Vascular disorder, abdominal aneurysm Physical examination: VITAL SIGNS: 98.2, 62, 16, 146/63, 97% room air GENERAL: Laying bed, awake, comfortable EYES: Pupils equal. Conjunctiva normal. HEENT: External appearance of nose and ears normal, oral cavity grossly normal. NECK: JVD not raised; masses not palpable. HEART: First and second heart sounds are normal; no edema. LUNGS: Respiratory rate normal; clear to auscultation. ABDOMEN: Soft, nontender, liver spleen not palpable, no masses palpable, colostomy bag. PSYCH: Alert and oriented x3; mood and affect normal. MUSCULOSKELETAL:No Clubbing/cyanosis;muscles-grossly intact. Evidence of OA INVESTIGATIONS, reviewed in the clinical context: December 07: White count 5.4 hemoglobin 12.2 White count 5.3 hemoglobin 14.6 platelets 374 sodium 139 potassium 4.2 creatinine 0.78 UA positive for blood, RBC 109 Pelvic ultrasound: Limited exam due to lack of bladder filling CT abdomen and pelvis with contrast: The second colostomy with large parastomal hernia containing multiple loops of bowel obstruction. L4-L5 spondylolisthesis. Large heterogenesis uterus with thickened endometrium Assessment and plan: - presents with large amount of brownish discolored fluid from the vagina. No pain fever no chills. CT did show enlarged uterus with thickened endometrium. Endometrial malignancy suspected Dilatation and curettage unsuccessful as cervical os was closed. Will need outpatient hysterectomy. -Large parastomal hernia with bowel loops and there. Nonobstructive. Follow clinically -Colostomy, from prior history of colorectal cancer. Has been functioning normally -Hyperlipidemia Zocor 4020 mg daily at bedtime -Essential hypertension Toprol-XL 50 mg daily at bedtime, Norvasc 5 mg a day, losartan 50 mg a day -Primary osteoarthritis multiple joints Aleve 220 mg by mouth twice a day when necessary -Obesity BMI 30.3 Weight loss measures Disposition: home Plan - Discharge Summary Discharge Rx Participant: No New Discharge Prescriptions: Continue Simvastatin [Zocor] 20 mg PO HS amLODIPine [Norvasc] 5 mg PO DAILY Losartan Potassium 50 mg PO DAILY Famotidine 20 mg PO HS Naproxen Sodium [Aleve] 220 mg PO BID PRN PRN Reason: Pain Metoprolol Succinate (ER) [Toprol XL] 50 mg PO HS Discontinued Ibuprofen [Motrin Ib] 200 mg PO DAILY Discharge Medication List Famotidine 20 mg PO HS 12/05/21 [History] Losartan Potassium 50 mg PO DAILY 12/05/21 [History] Metoprolol Succinate (ER) [Toprol XL] 50 mg PO HS 12/05/21 [History] Naproxen Sodium [Aleve] 220 mg PO BID PRN 12/05/21 [History] Simvastatin [Zocor] 20 mg PO HS 12/05/21 [History] amLODIPine [Norvasc] 5 mg PO DAILY 12/05/21 [History] Follow up Appointment(s)/Referral(s): Kiara Correia MD [STAFF PHYSICIAN] - 1 Week (Please call and make follow up appointment.) Lori Krueger MD [Primary Care Provider] - 12/13/21 1:45 pm Naseem Canales MD [STAFF PHYSICIAN] - 1 Week Patient Instructions/Handouts: Abnormal (Dysfunctional) Uterine Bleeding (DC) Discharge Disposition: HOME SELF-CARE
== END 2021-12-08 14:44 | disposition home or self-care (01) | DRG 760 ==
LOC: EC 21:35 → UNDOADMOB 12-06 01:33 → 5NMEDONC 12-06 01:33
PROVIDERS: ADMIT Hospitalist; ATTEND Hospitalist
PROC: 0UJH8ZZ Inspection of Vagina and Cul-de-sac, Via Natural or Artificial Opening Endoscopic (ICD-10-PCS; principal; 2021-12-07 09:00)
DX: N95.0 Postmenopausal bleeding (principal); K43.3 Parastomal hernia with obstruction, without gangrene; R93.89 Abnormal findings on diagnostic imaging of other specified body structures; E66.9 Obesity, unspecified; E78.5 Hyperlipidemia, unspecified; K21.9 Gastro-esophageal reflux disease without esophagitis; I10 Essential (primary) hypertension; K57.90 Diverticulosis of intestine, part unspecified, without perforation or abscess without bleeding; F41.9 Anxiety disorder, unspecified; M15.9 Polyosteoarthritis, unspecified; Z96.1 Presence of intraocular lens; Z85.048 Personal history of other malignant neoplasm of rectum, rectosigmoid junction, and anus; Z92.3 Personal history of irradiation; Z98.890 Other specified postprocedural states; Z68.30 Body mass index [BMI] 30.0-30.9, adult; Z86.010 Personal history of colon polyps; Z92.21 Personal history of antineoplastic chemotherapy; Z79.899 Other long term (current) drug therapy; Z98.42 Cataract extraction status, left eye; Z98.41 Cataract extraction status, right eye; Z83.3 Family history of diabetes mellitus; Z82.49 Family history of ischemic heart disease and other diseases of the circulatory system
CPT/HCPCS: 36415; 74177; 76830; 76856; 80053; 81001; 82150; 83690; 85025; 85610; 85730; 86850; 86900; 86901; 96360; 96361; 99285